=== PATIENT | female | born 1990 | race African-American/Black ===

== ENCOUNTER 2016-11-10 17:10 | Emergency (ER) | payer SELFPAY ==
[~2016-11-10] VITALS: Ht 175.3 cm; Wt 151.0 kg
[~2016-11-10 17:10] MED LIST: AMOXICILLIN500 M1 PO; MOTRIN800 MG PO; PREDNISONE20 MG PO
[2016-11-10] MEDS ORDERED: MEDROL DOSEPAK4 MG PO (19:11)
[2016-11-10] MEDS ORDERED: AMOXICILLIN875 MG PO (19:11)
[2016-11-10] MEDS ORDERED: CLARITIN-D 121 EACH PO (19:11)
[2016-11-10 19:27] VITALS: BP 131/81
== END 2016-11-10 19:27 | disposition home or self-care (01) ==
LOC: EME 17:10
DX: H66.92 Otitis media, unspecified, left ear (principal)
CPT/HCPCS: 99281; 99283

== ENCOUNTER 2017-01-25 18:06 | Emergency (ER) | payer SELFPAY ==
[~2017-01-25] VITALS: Ht 175.3 cm; Wt 149.8 kg
[~2017-01-25 18:06] MED LIST changes: +AMOXICILLIN875 MG PO; +CLARITIN-D 121 EACH PO; +MEDROL DOSEPAK4 MG PO
[2017-01-25 19:20] VITALS: BP 153/86
== END 2017-01-25 19:24 | disposition home or self-care (01) ==
LOC: EME 18:06
DX: J02.0 Streptococcal pharyngitis (principal)
CPT/HCPCS: 87651 90; 99281; 99284; J0561

== ENCOUNTER 2017-01-29 00:24 | Emergency (ER) | payer OTHER ==
[~2017-01-29] VITALS: Ht 175.3 cm; Wt 149.2 kg
[2017-01-29] MEDS ORDERED: DIFLUCAN150 MG PO (01:04)
[2017-01-29 01:23] VITALS: BP 151/72
== END 2017-01-29 01:24 | disposition home or self-care (01) ==
LOC: EME 00:24
DX: B37.3 Candidiasis of vulva and vagina (principal)
CPT/HCPCS: 99281; 99284

== ENCOUNTER 2018-01-07 13:47 | Emergency (ER) | payer BC ==
[~2018-01-07] VITALS: Ht 175.3 cm; Wt 159.6 kg
[~2018-01-07 13:47] MED LIST changes: +DIFLUCAN150 MG PO
[2018-01-07] MEDS ORDERED: BENADRYL50 MG PO (16:02)
[2018-01-07] MEDS ORDERED: PREDNISONE20 MG PO (16:02)
[2018-01-07 16:28] VITALS: BP 136/82
== END 2018-01-07 16:30 | disposition home or self-care (01) ==
LOC: EME 13:47
DX: T78.3XXA Angioneurotic edema, initial encounter (principal)
CPT/HCPCS: 99281; 99284; J7512